=== PATIENT | male | born 1995 | race Caucasian/White ===

== ENCOUNTER 2022-11-15 20:35 | Emergency (ER) | payer SELFPAY ==
[~2022-11-15] VITALS: Ht 172.7 cm; Wt 99.8 kg
[2022-11-15 20:50] VITALS: BP 126/89
--- NOTE | 2022-11-15 20:53 | NUR ---
to lobby a/w bed ambulatory
--- NOTE | 2022-11-15 22:09 | NUR ---
Dr. Hui examining patient.
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
[2022-11-15] MEDS ORDERED: BACI-416 TP (22:19)
[2022-11-15] MEDS ORDERED: ACET-10509 PO (22:19)
[2022-11-15] MEDS ORDERED: LIDOCAINE/EPI 2% 1:100000 20 ML VIAL INJ ONE (22:20)
[2022-11-15] MEDS ORDERED: LIDOCAINE/EPI MPF 2%1:200000 10 ML VIAL INJ ONE (22:20)
[2022-11-15] MEDS ORDERED: BACITRACIN OINT 500 UNITS/GM PKT TP ONE (22:20)
--- NOTE | 2022-11-15 22:40 | NUR ---
Dr. Hui at bedside
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
--- NOTE | 2022-11-15 23:18 | NUR ---
Patient discharged with v/s stable. Written and verbal after care instructions given and explained. Patient alert, oriented and verbalized understanding of instructions. Ambulatory with steady gait. All questions addressed prior to discharge. ID band removed. Patient advised to follow up with PMD. Rx of acetaminophen tab and bacitracin zinc given. Opportunity to ask questions provided and answered.
== END 2022-11-15 23:18 | disposition home or self-care (01) ==
LOC: MED 20:35
DX: S01.111A Laceration without foreign body of right eyelid and periocular area, initial encounter (principal); Z79.899 Other long term (current) drug therapy; Z79.2 Long term (current) use of antibiotics; W22.8XXA Striking against or struck by other objects, initial encounter; Y93.89 Activity, other specified; Y92.89 Other specified places as the place of occurrence of the external cause; Y99.8 Other external cause status
CPT/HCPCS: 12013; 90471; 90715; 99283; J2001; 99282

== ENCOUNTER 2022-11-22 16:42 | Emergency (ER) | payer SELFPAY ==
[~2022-11-22 16:42] MED LIST: ACET-10509 PO; BACI-416 TP
--- NOTE | 2022-11-22 16:47 | NUR ---
NAME CALLED IN LOBBY AND OUTSIDE, NO ANSWER
--- NOTE | 2022-11-22 17:00 | NUR ---
Claudia martin in [facility] - 11/22/22 at 1704 by [facility] PATIENT LEFT WITHOUT BEING SEEN BY DR. ROMERO. NO FURTHER CARE PROVIDED FOR PATIENT.
--- NOTE | 2022-11-22 17:00 | NUR ---
NAME CALLED IN LOBBY AND OUTSIDE, NO ANSWER
--- NOTE | 2022-11-22 17:14 | NUR ---
NAME CALLED IN LOBBY AND OUTSIDE, NO ANSWER
--- NOTE | 2022-11-22 17:25 | NUR ---
PATIENT LEFT WITHOUT BEING SEEN BY DR. ROMERO. NO FURTHER CARE PROVIDED FOR PATIENT.
== END 2022-11-22 17:00 | disposition left against medical advice (07) ==
LOC: MED 16:42
DX: Z48.02 Encounter for removal of sutures (principal); Z53.21 Procedure and treatment not carried out due to patient leaving prior to being seen by health care provider